=== PATIENT | female | born 1965 | race Caucasian/White ===

== ENCOUNTER 2024-09-24 07:53 | Outpatient (AMB) | payer OTHER, SELFPAY ==
--- OUTSIDE RECORDS SUMMARY | 2024-09-24 07:55 | XMS_ITS | Encounter Summary ---
Author Organization [employer] Address [address] [facility] 7 [place] [address] Care Team Providers Care Grand Jury Deputy Sheriff Name Role Phone Vandana CarneyP Primary Care Provider Un available Loida Daugherty Primary Care Provider [phone] Juanita Eldridge DO Primary Care Provider [phone] Encounter Details Date Type Department Care Team (Latest Contact Info) Description 11/25/2021 [facility] Dental, Provider, DDS Social History Tobacco Use Types Packs/Day Years Used Date Smoking Tobacco: Never Assessed Comments Unknown Sex and Gender Information Value Date Recorded Sex Assigned at Female 12/01/2022 9:53 AM EDT Legal Sex Female 5:34 PM EDT Gender Identity Female 12/01/2022 9:53 AM EDT Sexual Orientation Choose not to disclose 2022 9:53 AM EDT documented as of this encounter Plan of Treatment Not on file documented as of this encounter Visit Diagnoses Not on filedocumented in this encounter Care Teams Grand Jury Deputy Sheriff Relationship Specialty Start Date End Date Vandana Carney FNP PCP - General Family Medicine 12/09/22 04/04/23 Loida Daugherty FNP [address] [facility] [place] [address] PCP - General Family Medicine 04/05/23 08/02/23 Juanita Eldridge DO [address] [place] [address] PCP - General Family Medicine 08/03/23 documented as of this encounter
--- OUTSIDE RECORDS SUMMARY | 2024-09-24 07:55 | XMS_ITS | Encounter Summary ---
Author Organization [employer] Address [address] [facility] 7 [place] [address] Care Team Providers Care Java Security Architect Name Role Phone Vandana CarneyP Primary Care Provider Un available Loida Daugherty Primary Care Provider [phone] Juanita Eldridge DO Primary Care Provider [phone] Encounter Details Date Type Department Care Team (Latest Contact Info) Description 01/07/2021 Abstract [facility] CON[facility] Dental, Provider, DDS Social [...] on filedocumented in this encounter Care Teams Java Security Architect Relationship Specialty Start Date End Date Vandana Carney FNP PCP - General Family Medicine 12/09/22 04/04/23 Loida Daugherty FNP [address] [place] [address] PCP - General Family Medicine 04/05/23 08/02/23 Juanita Eldridge DO [address] [place] [address] PCP - General Family Medicine 08/03/23 documented as of this encounter
--- OUTSIDE RECORDS SUMMARY | 2024-09-24 07:55 | XMS_ITS | Clinical Summary ---
Author Organization [employer] [facility] Address [address] [place] [address] Care Team Providers Care Bush And Vine Fruit Crop Farmer Name Role Phone Unavailable Primary Care Provider Unavailabl e Surgical History Surgery Date Site/Laterality Comments COLONOSCOPY 2014 PROCEDURE: HISTORICAL COLONOSCOPY; COMMENT: f/u 5 yrs BREAST BIOPSY 10/2015 Left PROCEDURE: BX BREAST; PERC NEEDLE CORE W/IMAG GUID; COMMENT: benign Medical History Medical History Date Comments Historical Medical DX 2011 DX:Abnorma l Pap smear; COMMENT: ALYSSA 1, HPV neg Seasonal allergies DX:Seasonal a llergies Family History Medical History Relation Name Comments Other: Hodgkin's Lymphoma Father di ed at 62 after fall from roof No Known Problems Maternal Grandfather No Known Problems Maternal Grandmother Stroke Mother at 49 from flu, stroke, heart disease (had rheumatic heart disease as child) Breast cancer Other p. cousin No Known Problems Paternal Grandfather No Known Problems Paternal Grandmother No Known Problems Sister Colon cancer Neg Hx Ovarian cancer Neg Hx Uterine cancer Neg Hx Relation Name Status Comments Father Maternal Grandfather Maternal Grandmother Mother Other p. cousin Alive Paternal Grandfather Paternal Grandmother Sister Son 1 Jagdish Alive Son 2 Rodrick Alive Social History Tobacco Use Types Packs/Day Years Used Date Smoking Tobacco: Former Cigarettes Q uit: 08/21/1990 Smokeless Tobacco: Never Alcohol Use Standard Drinks/Week Comments Yes 0 (1 standard drink = 0.6 oz pur e alcohol) Sex and Gender Information Value Date Recorded Sex Assigned at Not on file Gender Identity Not on file Sexual Orientation Not on file Obstetrics History Last Filed Vital Signs Vital Sign Reading Time Taken Comments Blood Pressure 117/89 08/24/2023 11:00 AM EST Pulse 86 11/26/2021 10:44 AM EDT Temperature - - Respiratory Rate - - Oxygen Saturation - - Inhaled Oxygen Concentration - - Weight 91.4 kg (201 lb 9.6 oz) 08/24/2023 11:00 AM EST Height 170.2 cm (5' 7 ) 08/24/2023 11:00 AM EST Body Mass Index 31.57 08/24/2023 11:00 AM EST Plan of Treatment Upcoming Encounters Date Type Department Care Team (Late st Contact Info) Description 01/20/2025 7:30 AM EDT Appointment Radiology Department [address] [address] Health Maintenance Due Date Last Done Comments DTaP,Tdap,and Td Vaccines (1 - Tdap) 1983 Cervical Cancer Screening: HPV 1985 Zoster Vaccines (1 of 2) 2014 Colorectal Cancer Screening: Colonoscopy 07/30/2022 Depression Screening 07/30/2022 HIV Screening 07/30/2022 Hepatitis C Screening 07/30/2022 Social Influencers of Health Screening 07/30/2022 COVID-19 Vaccine ( - season) 2024 Influenza Vaccine (#1) 2024 Breast Cancer Screening 01/03/2026 01/04/20 24, 01/04/2024, 11/24/2022, Additional history exists RSV Immunization Patients 60+ Years Old (1 - 1-dose 75+ series) 2039 HIB Vaccines Aged Out No longer eligi ble based on patient's age to complete this topic HPV Vaccines Aged Out No longer eligi ble based on patient's age to complete this topic Hepatitis A Vaccines Aged Out No long er eligible based on patient's age to complete this topic Hepatitis B Vaccines Aged Out No long er eligible based on patient's age to complete this topic IPV Vaccines Aged Out No longer eligi ble based on patient's age to complete this topic MMR Vaccines Aged Out No longer eligi ble based on patient's age to complete this topic Meningococcal ACWY Vaccine Aged Out N o longer eligible based on patient's age to complete this topic Pneumococcal Vaccine: Pediatrics (0 to 5 Years) and At-Risk Patients (6 to 64 Years) Aged Out No longer eligible based on patient's age to complete this topic RSV Immunization Patients Under 20 months Aged Out No longer eligible based on patient's age to complete this topic Varicella Vaccines Aged Out No longer eligible based on patient's age to complete this topic Procedures Procedure Name Priority Date/Time Associated Diagnosis Comments SCREENING MAMMOGRAPHY BI 2-VIEW BREAST INC CAD Routine 01/04/2024 7:47 AM EDT Encounter for screening mammogram for malignant neoplasm of breast from Last 3 Months or Most Recently Relevant to Health Maintenance Results * SCREENING MAMMOGRAPHY BI 2-VIEW BREAST INC CAD (01/04/2024 7:47 AM EDT) Anatomical Region Laterality Modality Radiographic Ana ging 11/24/2022 5:23 PM EDT Narrative 01/04/2024 6:41 PM EDT This is a summary report. The complete report is available in the patient's medical record. If you cannot access the medical record, please contact the sending organization for a detailed fax or copy. Exam: Screening mammogram Findings: Digital bilateral full-field screening mammography is performed with tomosynthesis and interpreted with the aid of computer-aided detection. ??Comparison is made with 11/24/2022 and as far back as 10/08/2020. Breast parenchyma is composed of scattered fibroglandular densities. ??No new suspicious mass, architectural distortion, or suspicious calcifications. Impression: No mammographic evidence of malignancy. BI-RADS 1 - negative Procedure Note Vee Moses MD - 04/08/2024 This is a summary report. The complete report is available in thepatient's medical record. If you cannot access the medical record, pleasecontact the sending organization for a detailed fax or copy. Exam: Screening mammogram Findings: Digital bilateral full-field screening mammography is performedwith tomosynthesis and interpreted with the aid of computer-aideddetection. Comparison is made with 11/24/2022 and as far back as10/08/2020. Breast parenchyma is composed of scattered fibroglandular densities. Nonew suspicious mass, architectural distortion, or suspiciouscalcifications. Impression: No mammographic evidence of malignancy. BI-RADS 1 - negative Romain Philip CNM IMG XR PROCEDURES from Last 3 Months or Most Recently Relevant to Health Maintenance
--- OUTSIDE RECORDS SUMMARY | 2024-09-24 07:55 | XMS_ITS | Encounter Summary ---
Author Organization [employer] Address [address] [facility] 7 [place] [address] Care Team Providers Care Feller Operator Name Role Phone Vandana CarneyP Primary Care Provider Un available Loida Daugherty Primary Care Provider [phone] Juanita Eldridge DO Primary Care Provider [phone] Encounter Details Date Type Department Care Team (Latest Contact Info) Description 08/01/2019 Abstract [facility] CONVERSION[facility] Dental, Provider, DDS Social [...] on filedocumented in this encounter Care Teams Feller Operator Relationship Specialty Start Date End Date Vandana Carney FNP PCP - General Family Medicine 12/09/22 04/04/23 Loida Daugherty FNP [address] [place] [address] PCP - General Family Medicine 04/05/23 08/02/23 Juanita Eldridge DO [address] [place] [address] PCP - General Family Medicine 08/03/23 documented as of this encounter
--- OUTSIDE RECORDS SUMMARY | 2024-09-24 07:55 | XMS_ITS | Encounter Summary ---
Author Organization [employer] Address [address] [facility] 7 [place] [address] Care Team Providers Care Induction Machine Operator Name Role Phone Vandana CarneyP Primary Care Provider Un available Loida Daugherty Primary Care Provider [phone] Juanita Eldridge DO Primary Care Provider [phone] Encounter Details Date Type Department Care Team (Latest Contact Info) Description 01/17/2019 Abstract [facility] CONVERSION[facility] Dental, Provider, DDS Social [...] on filedocumented in this encounter Care Teams Induction Machine Operator Relationship Specialty Start Date End Date Vandana Carney FNP PCP - General Family Medicine 12/09/22 04/04/23 Loida Daugherty FNP [address] [place] [address] PCP - General Family Medicine 04/05/23 08/02/23 Juanita Eldridge DO [address] [place] [address] PCP - General Family Medicine 08/03/23 documented as of this encounter
--- OUTSIDE RECORDS SUMMARY | 2024-09-24 07:55 | XMS_ITS | Encounter Summary ---
Author Organization [employer] Address [address] [facility] 7t [place] [address] Care Team Providers Care Senior Category Manager Name Role Phone Vandana Carney Primary Care Provider Un available Loida Daugherty Primary Care Provider [phone] Juanita Eldridge DO Primary Care Provider [phone] Encounter Details Date Type Department Care Team (Late st Contact Info) Description 11/29/2022 Orders Only [facility] MEDICAL [address] [place] [address] Provider, Historical, Social History Tobacco Use Types Packs/Day Years [...] on file documented as of this encounter Procedures Procedure Name Priority Date/Time Associated Diagnosis Comments MAMMOGRAPHY Routine 11/24/2022 documented in this encounter Results * Hm Mammography (11/24/2022) Anatomical Region Laterality Modality Other us Historical Provider HEALTH MAINTENANCE Final Result documented in this encounter Visit Diagnoses Not on filedocumented in this encounter Care Teams Senior Category Manager Relationship Specialty Start Date End Date Vandana Carney FNP PCP - General Family Medicine 12/09/22 04/04/23 Loida Daugherty FNP [address] [facility] [place] [address] PCP - General Family Medicine 04/05/23 08/02/23 Juanita Eldridge DO [address] [facility] [place] [address] PCP - General Family Medicine 08/03/23 documented as of this encounter
--- OUTSIDE RECORDS SUMMARY | 2024-09-24 07:55 | XMS_ITS | Encounter Summary ---
Author Organization [employer] Address [address] [facility] [address] [place] [address] Care Team Providers Care Ocular Care Technologist Name Role Phone Vandana CarneyP Primary Care Provider Un available Loida Daugherty Primary Care Provider [phone] Juanita Eldridge DO Primary Care Provider [phone] Encounter Details Date Type Department Care Team (Latest Contact Info) Description 07/09/2020 Abstract [facility] CONVERSION[facility] Dental, Provider, DDS Social [...] on filedocumented in this encounter Care Teams Ocular Care Technologist Relationship Specialty Start Date End Date Vandana Carney FNP PCP - General Family Medicine 12/09/22 04/04/23 Loida Daugherty FNP [address] [place] [address] PCP - General Family Medicine 04/05/23 08/02/23 Juanita Eldridge DO [address] [place] [address] PCP - General Family Medicine 08/03/23 documented as of this encounter
--- OUTSIDE RECORDS SUMMARY | 2024-09-24 07:55 | XMS_ITS | Encounter Summary ---
Author Organization [employer] Address [address] [facility] [address] [place] [address] Care Team Providers Care Home Appliance Washing Machine Mechanic Name Role Phone Juanita Eldridge DO Primary Care Provider [phone] Encounter Details Date Type Department Care Team (Late st Contact Info) Description 06/07/2024 Orders Only [place] [facility] MEDICAL [address] [place] [address] Juanita Eldridge DO [address] [place], [place] [id number] Colon cancer screening Social History Tobacco Use Types Packs/Day Years Used Date Smoking Tobacco: Former Cigarettes Passive Smoke Exposure: Past Smokeless Tobacco: Never Alcohol Use Standard Drinks/Week Comments Not Currently 0 (1 standard drink = 0.6 oz pur e alcohol) Alcohol Answer Date Recorded How often do you have a drink containing alcohol ? 0 08/03/2023 How many drinks containing a lcohol do you have on a typical day when you are drinking? 0 08/03/2023 How often do you have six or more drinks on one occasion? 0 08/03/2023 Housing Stability Answer Date Recorded What is your housing situation today? I have janeen armenta 08/03/[address] you li ve. Do you have problems with any of the following? None of the above 08/03/2023 Food Insecurity Answer Date Recorded Within the past 12 months, y ou worried that your food would run out before you got money to buy more: Never True 08/03/2023 Within the past 12 months,th e food you bought just didn't last and you didn't have enough money to get more: Never True Transportation Answer Date Recorded In the past 12 months, has l ack of transportation kept you from medical appts, meetings, work or from getting things needed for daily living? No 08/03/2023 Intimate Partner Violence Answer Date R ecorded Within the last year, have y ou been afraid of your partner or ex-partner? 2 08/03/2023 Within the last year, have y ou been humiliated or emotionally abused in other ways by your partner or ex-partner? 2 Within the last year, have y ou been kicked, hit, slapped, or otherwise physically hurt by your partner or ex-partner? 2 08/03/2023 Within the last year, have y ou been raped or forced to have any kind of sexual activity by your partner or ex-partner? 2 08/03/2023 Utilities Answer Date Recorded In the past 12 months, has t he electric, gas, oil or water company threatened to shut off services in your home? No 08/03/2023 Depression Answer Date Recorded Patient Health Questionnaire-2 Score 0 08/03/2023 Comments Unknown Sex and Gender Information Value [...] Procedure Name Priority Date/Time Associated Diagnosis Comments AMB REFERRAL TO GASTROENTEROLOGY Routine 05/30/2024 Colon cancer screening documented in this encounter Results * Referral to Gastroenterology (05/30/2024) Juanita Eldridge DO OUTPATIENT REFERRAL ORDERABLES Final Result documented in this encounter Visit Diagnoses Diagnosis Colon cancer screening Special screening for malignant neoplasms, colon documented in this encounter Care Teams Home Appliance Washing Machine Mechanic Relationship Specialty Start Date End Date Juanita Eldridge DO [address] [place] [address] PCP - General Family Medicine 08/03/23 documented as of this encounter
--- OUTSIDE RECORDS SUMMARY | 2024-09-24 07:55 | XMS_ITS | Clinical Summary ---
Author Organization [employer] Address [address] [facility] 7t [place] [address] Care Team Providers Care Glue Specialty Supervisor Name Role Phone Juanita Eldridge Primary Care Provider [phone] Allergies No known active allergies Medications ibuprofen (Advil) 200 MG tablet 2 tablets. Active Multiple Vitamin (MULTIVITAMINS PO) daily. Active Active Problems Problem Noted Date Diagnosed Date Primary osteoarthritis of left knee 05/09/2024 Overview (05/09/2024): Images from the original note were not included. Hypercholesterolemia 08/03/2023 Assessment & Plan (08/03/2023 9:43 AM EST): Elevated total and LDL cholesterol on last check. Repeat today Prediabetes 08/02/2023 08/02/2023 Overview (08/03/2023): 08/03/23 A1C 5.7% Assessment & Plan (08/03/2023 9:44 AM EST): A1C 5.7% today Improved, monitor yearly Obesity (BMI 30.0-34.9) 08/02/2023 08/02/20 Menopausal symptoms 08/02/2023 08/02/2023 History of COVID-19 08/02/2023 08/02/2023 Resolved Problems Problem Noted Date Diagnosed Date Resolved Date Abnormal mammogram 08/02/2023 08/02/2023 Overview (08/03/2023): A few years ago. Subsequently normal Immunizations Name Administration Dates Next Due Hep B, adult 06/30/2004,01/26/2004,12/26/2003 Influenza, Split (incl. cherie fied surface antigen) 06/03/2007 TD (adult), 2 Lf tetanus tox oid, preservative free, adsorbed 06/24/2009,12/27/1999 Tdap 02/23/2018 Varicella 10/04/1969 Zoster, Recombinant 01/21/2021 Family History Medical History Relation Name Comments Hodgkin's lymphoma Father T2DM Father HLD Maternal Grandmother HTN Maternal Grandmother CVA Mother Rheumatic fever Mother pleural effusion Mother Ulcerative colitis Sister Relation Name Status Comments Father Maternal Grandmother Mother Sister Social History Tobacco Use Types Packs/Day Years Used Date Smoking Tobacco: Former Cigarettes Passive Smoke Exposure: Past Smokeless Tobacco: Never Tobacco Cessation:Counseling Given: Not Answered Alcohol Use Standard Drinks/Week Comments Not Currently [...] is your housing situation today? I have janeenruslan armenta 08/03/[address] you [...] the past 12 months, has t he [employer], [employer], [employer] or water [employer] threatened to shut off services in your home? No 08/03/2023 Depression Answer Date Recorded Patient Health Questionnaire-2 Score 0 08/03/2023 Comments Unknown Sex and Gender Information Value Date Recorded Sex Assigned at Female 12/01/2022 9:53 AM EDT Legal Sex Female 5:34 PM EDT Gender Identity Female 12/01/2022 9:53 AM EDT Sexual Orientation Choose not to disclose 2022 9:53 AM EDT Last Filed Vital Signs Vital Sign Reading Time Taken Comments Blood Pressure 136/100 08/03/2023 9:04 AM EST Pulse 92 08/03/2023 8:17 AM EST Temperature 36.5 ??C (97.7 ??F) 08/03/2023 8:17 AM ES T Respiratory Rate - - Oxygen Saturation 97% 08/03/2023 8:17 AM EST Inhaled Oxygen Concentration - - Weight 92.1 kg (203 lb) 08/03/2023 8:17 AM EST Height 170.2 cm (5' 7 ) 08/03/2023 8:17 AM EST Body Mass Index 31.79 08/03/2023 8:17 AM EST Plan of Treatment Health Maintenance Due Date Last Done Comments CT Colonography 1964 Colonoscopy 1964 Colorectal Cancer Screening 1964 FIT DNA/Cologuard 1964 FIT 1964 FOBT 1964 Sigmoidoscopy 1964 Alcohol/Substance Use Screening 1976 Hepatitis C Screening 1982 Pneumococcal Vaccine: 50+ Years (1 of 1 - PCV) 2014 Cervical Cancer Screening 12/01/2017 HPV/Cotest 12/01/2017 12/01/2012 Pap Smear 12/01/2017 12/01/2012 Dental X-Ray: Full Mouth 10/09/2018 10/08/2015, 10/2001 Zoster Vaccines (2 of 2) 03/18/2021 01/21/2021 Dental X-Ray: Bitewings 06/03/2023 06/02/20 22, 01/07/2021, 08/01/2019, Additional history exists Dental Oral Exam 06/10/2023 12/08/2022, , 11/25/2021, Additional history exists Dental Prophylaxis 06/10/2023 12/08/2022, 1 , 11/25/2021, Additional history exists COVID-19 Vaccine ( season) 2024 08/09/2021, 12/25/2020, 11/27/2020 Influenza Vaccine (#1) 2024 06/03/2007 Depression Screening 08/03/2024 08/03/2023, 08/03/20 23 Diabetes: Hemoglobin A1C 08/03/2024 023, 01/21/2022, 10/22/2020 SDOH Screening 08/03/2024 08/03/2023 Tobacco Screening 08/03/2024 08/03/2023 Mammogram 11/24/2024 11/24/2022, 08/2017, 10/19/2017 DTaP/Tdap/Td Vaccines (2 - Td or Tdap) 02/24/2028 02/23/2018, 06/24/2009, 12/27/1999 RSV Patients and Patients Aged 60 years or older (1 - 1-dose 75+ series) 2039 Hepatitis B Vaccines Completed 06/30/2004, 01/26/2004, 12/26/2003 HIV Screening Completed 11/26/2012 HIB Vaccines Aged Out No longer eligi [...] patient's age to complete this topic Meningococcal Vaccine Aged Out No beatriz kiersten eligible based on patient's age to complete this topic RSV under 20 months Aged Out No longe r eligible based on patient's age to complete this topic Rotavirus Vaccines Aged Out No longer eligible based on patient's age to complete this topic Procedures Procedure Name Priority Date/Time Associated Diagnosis Comments POCT GLYCOSYLATED HEMOGLOBIN (HGB A1C) Routine 08/03/2023 8:44 AM EST Prediabetes PROPHYLAXIS - ADULT Routine 12/08/2022 8 :30 AM EDT PERIODIC ORAL EVALUATION - ESTABLISHED PATIENT Routine 12/08/2022 8:30 AM EDT HM MAMMOGRAPHY Routine 11/24/2022 BITEWINGS - 4 RADIOGRAPHIC IMAGES Routine 06/02/2022 12:00 AM EDT DIAGNOSTIC - DIAGNOSTIC IMAGING - INTRAORAL - COMPREHENSIVE SERIES OF RADIOGRAPHIC IMAGES Routine 10/08/2015 12:00 AM EST THIN PREP PAP, WITH HPV Routine 12/01/2012 12:00 AM EDT HIV-1 ANTIBODY, EIA Routine 11/26/2012 from Last 3 Months or Most Recently Relevant to Health Maintenance Results * (ABNORMAL) POCT glycosylated hemoglobin (Hgb A1c) (08/03/2023 8:44 AM EST) Hemoglobin A1C 5.7 4.0 - 6.0 % Blood Capillary blood specimen / Unknown 08/03/2023 8:44 AM EST Juanita Eldridge DO POINT OF CARE TEST ENTER/EDIT ORDERABLES Final Result * Hm Mammography (11/24/2022) Anatomical Region Laterality Modality Other Historical Provider HEALTH MAINTENANCE Final Result * THIN PREP PAP, WITH HPV (12/01/2012 12:00 AM EDT) Historical Provider LAB CYTOLOGY ORDERABLES F inal Result [facility] [address] [place] [address] * HIV-1 antibody, EIA (11/26/2012) External HIV-1 Antibody None Detected Blood Venous blood specimen / Unknown us Historical Provider LAB BLOOD ORDERABLES Samantha l Result from Last 3 Months or Most Recently Relevant to Health Maintenance Insurance [facility] [address] Care Teams Glue Specialty Supervisor Relationship Specialty Start Date End Date Juanita Eldridge DO [address] [place] [id number] PCP - General Family Medicine 08/03/23
[2024-09-24 08:06] VITALS: BP 122/74; PULSE 82; TEMP 36.6; O2SAT 98; BMI 31.9
--- NOTE | 2024-09-24 08:06 | A.OFFVIS_ITS ---
Vital Signs 09/24/24 08:06 Height 5 ft 7 in Weight 204 lb BMI 31.9 BP 122/74 Blood Pressure Location Lt brachial Position Sitting Pulse 82 Pulse Source Pulse Oximeter Temp 98 F Pulse Oximetry (%) 98 Oxygen Delivery Method Room Air Intake Visit Reasons: Arthritis Intake Note: Patient presents today for follow up on osteoarthritis. She was last seen in the office at [facility] on 02/15/24. Allergies No Known Allergies Allergy (Verified 09/24/24 08:09) HPI HPI Arthritis: Details: Euflexxa injections last 5 months. She has changed job, which has helped since she is not on her feet 9 hours a day. She had exacerbation of knee pain when she was in [facility] recently requiring Acetaminophen regularly. Uses knee braces when walking. 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 of left midfoot Anserine bursitis H/O mammogram Infrapatellar bursitis Bursitis Arthralgia of knee Surgical History (Updated 09/20/24 @ 16:21 by Jasmin Wilcox CMA) H/O colonoscopy Social History (Updated 09/20/24 @ 16:17 by Jasmin Wilcox CMA) Household Members: Significant Other Patient Tobacco Use Status: Former Tobacco user Review of Systems Const All systems reviewed & are unremarkable except as noted in HPI and below Physical Exam Vital Signs: Last Vital Signs Temp 98 F 09/24/24 08:06 Pulse 82 09/24/24 08:06 BP 122/74 09/24/24 08:06 Pulse Ox 98 09/24/24 08:06 Oxygen Delivery Method Room Air 09/24/24 08:06 BMI result Body Mass Index 31.9 Const Other: General: Comfortable Skin: No lesions seen MSK: Tender to palpate joint line of bilateral knees. Right knee crepitus palpated. No new effusion palpated. Right knee flexion 100 degrees. Left knee flexion 110 degrees. Assessment & Plan Assessment & Plan (1) Osteoarthritis of knees, bilateral: Comment: Left knee pain is uncontrolled. Right knee pain has started but it is tolerable. She received benefit with Euflexxa injections. Failed cortisone injection in the past. Code(s): M17.0 - Bilateral primary osteoarthritis of knee Category: Medical Plan: Euflexxa PA left knee Return to clinic in 1 month or sooner if Euflexxa is approved Bilateral Hinged knee brace prescription prescribed Medications: New leg brace (Knee Support Brace) As directed. Bilateral Hinged braces Dx: osteoarthritis knee 2 ea 0RF Coding Level of Care Code Est Pt Level 3 (60831) Complex EM visit Add On G2211 Diagnoses Osteoarthritis of knees, bilateral M17.0
== END 2024-09-24 08:33 | disposition home or self-care (01) ==
PROVIDERS: PCP Nurse Practitioner Adult Health; Visit Provider Internal Medicine Rheumatology
DX: M17.0 Bilateral primary osteoarthritis of knee (principal)
CPT/HCPCS: 99213

== ENCOUNTER → 2024-09-24 07:53 | Outpatient (BNVA) | payer OTHER, SELFPAY | PROVIDERS: PCP Nurse Practitioner Adult Health; Visit Provider Internal Medicine Rheumatology ==

== ENCOUNTER 2024-11-14 14:21 | Outpatient (AMB) | payer OTHER, SELFPAY ==
--- NOTE | 2024-11-14 14:27 | MHC.OFFVIS ---
Vital Signs 11/14/24 14:30 Height 5 ft 7 in Weight 203 lb 4.259 oz BMI 31.8 BP 130/80 Blood Pressure Location Rt brachial Position Sitting Pulse 97 Pulse Source Pulse Oximeter Pulse Oximetry (%) 99 Oxygen Delivery Method Room Air Intake Visit Reasons: euflexxa #1 Intake Note: Pt presents today for euflexxa injection number 1. Allergies No Known Allergies Allergy (Verified 09/24/24 08:09) HPI HPI euflexxa #1: Details: She has been experiencing pain in her calves. 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 Massage helps. 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 of left midfoot Anserine bursitis H/O mammogram Infrapatellar bursitis Bursitis Arthralgia of knee Surgical History H/O colonoscopy Social History Household Members: Significant Other Patient Tobacco Use Status: Former Tobacco user Review of Systems Const All systems reviewed & are unremarkable except as noted in HPI and below Physical Exam Vital Signs: Last Vital Signs Pulse 97 11/14/24 14:30 BP 130/80 11/14/24 14:30 Pulse Ox 99 11/14/24 14:30 Oxygen Delivery Method Room Air 11/14/24 14:30 BMI result Body Mass Index 31.8 Const Other: General: Comfortable Skin: No lesions seen MSK: Tender to palpate joint line of bilateral knees. Right knee crepitus palpated. Tender calves on palpation. No increase with of calves or discoloration present. No new effusion palpated. Right knee flexion 100 degrees. Left knee flexion 110 degrees. Office Procedures AMB Joint Injection/Aspiration Joint Injection/Aspiration Details: Left knee joint Prep: site was prepped using aseptic technique Injected: Euflexxa was injected with 25 gauge 1-1/2 inch needle Procedure: The patient tolerated the procedure well. Postprocedure protocol was discussed with patient. Coding 04559 - Large joint Procedure code (CPT) selection complete Office Meds Euflexxa 10 mg/mL (mw 2.4-3.6 million) intra-articular syringe Performing Provider: Imer Fonseca MD Performing Location: [facility] [place] Rheumatology-[facility] Administered by: Imer Fonseca MD on 11/14/24 16:25 Dose Route Admin Location Dispensed Lot Number Expiration Date [facility] Manager [employer] 20 mg intra-articular 2 mL [id number] Assessment & Plan Assessment & Plan (1) Osteoarthritis of knees, bilateral: Comment: Left knee pain is uncontrolled. Euflexxa 1. Today Rheumatology history: She received benefit with Euflexxa injections 2023. Euflexxa 10/2024. Failed cortisone injection in the past. 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 We discussed conservative management Code(s): M79.661 - Pain in right lower leg; M79.662 - Pain in left lower leg Category: Medical Plan: Continue massage as needed Apply heat to calves I recommend that she change her workstation so it is closer to the printer. She will also change her chair to be able to wheel herself to the printer when needed. Orders: Orders AMB Joint Injection/Aspiration Today M17.0 - Bilateral primary osteoarthritis of knee Coding Level of Care Code Est Pt Level 4 (14303) Complex EM visit Add On G2211 Diagnoses Primary osteoarthritis of both knees M17.0 Osteoarthritis type: primary Bilateral calf pain M79.661; M79.662 CPT Codes Coding - 49156 Large joint: 64671 - Large joint ([id number])
[2024-11-14 14:30] VITALS: BP 130/80; PULSE 97; O2SAT 99; BMI 31.8
== END 2024-11-14 15:12 | disposition home or self-care (01) ==
LOC: HO.RHES 14:22
PROVIDERS: PCP Nurse Practitioner Adult Health; Visit Provider Internal Medicine Rheumatology
DX: M17.0 Bilateral primary osteoarthritis of knee (principal); M79.661 Pain in right lower leg; M79.662 Pain in left lower leg
CPT/HCPCS: 20610

== ENCOUNTER → 2024-11-14 14:21 | Outpatient (BNVA) | payer OTHER, SELFPAY | PROVIDERS: PCP Nurse Practitioner Adult Health; Visit Provider Internal Medicine Rheumatology | DX: M17.0 Bilateral primary osteoarthritis of knee (principal); M79.661 Pain in right lower leg; M79.662 Pain in left lower leg | CPT/HCPCS: 20610; J7323 ==

== ENCOUNTER 2024-11-21 13:40 | Outpatient (AMB) | payer OTHER, SELFPAY ==
--- NOTE | 2024-11-21 13:43 | A.OFFVIS_ITS ---
Vital Signs 11/21/24 13:44 Height 5 ft 7 in BP 100/70 Blood Pressure Location Lt brachial Position Sitting Pulse 93 Pulse Source Pulse Oximeter Pulse Oximetry (%) 98 Oxygen Delivery Method Room Air Intake Visit Reasons: euflexxa #2 Intake Note: Euflexxa injection 2 Allergies No Known Allergies Allergy (Verified 11/21/24 13:43) HPI HPI euflexxa #2: Details: Improve pain from last injection. 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 Right knee crepitus palpated. No new effusion palpated. Left knee flexion 110 degrees. Office Procedures AMB Joint Injection/Aspiration Joint Injection/Aspiration Details: Left knee joint Prep: site was prepped using aseptic technique Injected: 40 mg of, Kenalog, with 1 mL of and 1% plain lidocaine Procedure: The patient tolerated the procedure well. Postprocedure protocol was discussed with patient. Coding 90646 - Large joint Procedure code (CPT) selection complete Office Meds Euflexxa 10 mg/mL (mw 2.4-3.6 million) intra-articular syringe Performing Provider: Imer Fonseca MD Performing Location: [facility] [place] Rheumatology-[facility] Administered by: Imer Fonseca MD on 11/21/24 15:01 Dose Route Admin Location Dispensed Lot Number Expiration Date [facility] Branch Associate Teller 20 mg intra-articular 2 mL [id number] Assessment & Plan Assessment & Plan (1) Osteoarthritis of knees, bilateral: Comment: Left knee pain is uncontrolled. Euflexxa 2. Today Rheumatology history: She received benefit with Euflexxa injections 2023. Euflexxa 10/2024. Failed cortisone injection in the past. Code(s): M17.0 - Bilateral primary osteoarthritis of knee Category: Medical Qualifiers: Osteoarthritis type: primary Qualified Code(s): M17.0 - Bilateral primary osteoarthritis of knee Plan: Patient received injection Euflexxa to left knee Return to clinic in 1 week Orders: Orders AMB Joint Injection/Aspiration Today M17.0 - Bilateral primary osteoarthritis of knee Medications: New Euflexxa (sodium hyaluronate (viscosup)) 20 mg (2 mL) intra-articular ONCE 2 mL 0RF NS M17.0 - Bilateral primary osteoarthritis of knee Coding Level of Care Code Est Pt Level 3 (19706) Complex EM visit Add On G2211 Diagnoses Primary osteoarthritis of both knees M17.0 Osteoarthritis type: primary CPT Codes Coding - 41939 Large joint: 89591 - Large joint ([id number])
[2024-11-21 13:44] VITALS: BP 100/70; PULSE 93; O2SAT 98
--- OUTSIDE RECORDS SUMMARY | 2024-11-21 15:01 | XMS_ITS | Clinical Summary ---
Author Organization [facility] Address [address] [place] [address] Care Team Providers Care Piece Cutter Name Role Phone Unavailable Primary Care Provider [...] drink = 0.6 oz pur e alcohol) Comments Unknown Sex and Gender Information Value Date Recorded Sex Assigned at Not on file Legal Sex Female 2:21 AM EST Gender Identity Not on file Sexual Orientation [...] 01/20/2025 7:30 AM EDT Appointment Radiology Department [address] [id number] Health Maintenance Due Date Last Done Comments DTaP,Tdap,and Td Vaccines (1 - Tdap) 1983 Cervical Cancer Screening: HPV 1985 Pneumococcal Vaccine: 50+ Years (1 of 1 - PCV) 2014 Zoster Vaccines (1 of 2) 2014 Colorectal Cancer Screening: Colonoscopy 07/30/2022 Depression Screening 07/30/2022 HIV Screening 07/30/2022 Hepatitis C Screening 07/30/2022 Social Influencers of Health Screening 07/30/2022 COVID-19 Vaccine ( - season) 2024 Influenza Vaccine (#1) 2024 Breast Cancer Screening 01/03/2026 01/04/20 24, 01/04/2024, 11/24/2022, Additional history exists RSV Immunization Adult Patients (1 - 1-dose 75+ series) 2039 HIB [...] patient's age to complete this topic Meningococcal B Vacine Aged Out No lo nger eligible based on patient's age to complete [...] of malignancy. BI-RADS 1 - negative Romain LLANES IMG XR PROCEDURES Final Result from Last 3 Months or Most Recently Relevant to Health Maintenance
--- OUTSIDE RECORDS SUMMARY | 2024-11-21 15:01 | XMS_ITS | Clinical Summary ---
Author Organization [employer] Address [address] [facility] [address] [place] [address] Care Team Providers Care State'S Attorney Name Role Phone Juanita Eldridge Primary Care Provider [phone] Allergies No known active allergies Medications ibuprofen [...] the past 12 months, has t he [employer], [employer], [employer] or water Presentain threatened to shut off services in your [...] RADIOGRAPHIC IMAGES Routine 06/02/2022 12:00 AM EDT INTRAORAL - COMPLETE SERIES OF RADIOGRAPHIC IMAGES Routine 10/08/2015 12:00 [...] Provider LAB CYTOLOGY ORDERABLES F inal Result [facility] [address] [place] [address] * HIV-1 antibody, EIA (11/26/2012) External HIV-1 Antibody None Detected Blood Venous blood specimen / Unknown us Historical Provider LAB BLOOD ORDERABLES Samantha l Result from Last 3 Months or Most Recently Relevant to Health Maintenance Insurance [facility] [address] [place] [address] Care Teams State'S Attorney Relationship Specialty Start Date End Date Juanita Eldridge DO [address] [place] [address] PCP - General Family Medicine 08/03/23
--- OUTSIDE RECORDS SUMMARY | 2024-11-21 15:01 | XMS_ITS | Encounter Summary ---
Author Organization [employer] Address [address] [facility] 7 [place] [address] Care Team Providers Care Clay Dry Press Operator Name Role Phone Vandana CarneyP Primary Care Provider Un available Loida Daugherty Primary Care Provider [phone] Juanita Eldridge DO Primary Care Provider [phone] Encounter Details Date Type Department Care Team [...] on filedocumented in this encounter Care Teams Clay Dry Press Operator Relationship Specialty Start Date End Date Vandana Carney FNP PCP - General Family Medicine 12/09/22 04/04/23 Loida Daugherty FNP [address] [place] [address] PCP - General Family Medicine 04/05/23 08/02/23 Juanita Eldridge DO [address] [place] [address] PCP - General Family Medicine 08/03/23 documented as of this encounter
--- OUTSIDE RECORDS SUMMARY | 2024-11-21 15:01 | XMS_ITS | Encounter Summary ---
Author Organization [employer] Address [address] [facility] [address] [place] [address] Care Team Providers Care Shop Hand Name Role Phone Vandana CarneyP Primary Care Provider Un available Loida Daugherty Primary Care Provider [phone] Juanita Eldridge DO Primary Care Provider [phone] Encounter Details Date Type Department Care Team [...] on filedocumented in this encounter Care Teams Shop Hand Relationship Specialty Start Date End Date Vandana Carney FNP PCP - General Family Medicine 12/09/22 04/04/23 Loida Daugherty FNP [address] [place] [address] PCP - General Family Medicine 04/05/23 08/02/23 Juanita Eldridge DO [address] [place] [address] PCP - General Family Medicine 08/03/23 documented as of this encounter
--- OUTSIDE RECORDS SUMMARY | 2024-11-21 15:01 | XMS_ITS | Encounter Summary ---
Author Organization [employer] Address [address] [facility] [address] [place] [address] Care Team Providers Care Food Science Technician Name Role Phone Juanita Eldridge DO Primary Care Provider Encounter Details Date Type Department Care Team (Late st Contact Info) Description 06/07/2024 Orders Only [place] [facility] [address] [place] [address] Juanita Eldridge DO [address] [place], [place] [id number] Colon cancer screening Social History Tobacco Use [...] colon documented in this encounter Care Teams Food Science Technician Relationship Specialty Start Date End Date Juanita Eldridge DO [address] [place] [address] PCP - General Family Medicine 08/03/23 documented as of this encounter
--- OUTSIDE RECORDS SUMMARY | 2024-11-21 15:01 | XMS_ITS | Encounter Summary ---
Author Organization [employer] Address [address] [facility] [address]t [place] [address] Care Team Providers Care Transportation Dispatcher Name Role Phone Vandana CarneyP Primary Care Provider Un available Loida Daugherty Primary Care Provider [phone] Juanita Eldridge DO Primary Care Provider [phone] Encounter Details Date Type Department Care Team [...] on filedocumented in this encounter Care Teams Transportation Dispatcher Relationship Specialty Start Date End Date Vandana Carney FNP PCP - General Family Medicine 12/09/22 04/04/23 Loida Daugherty FNP [address] [facility] [place] [address] PCP - General Family Medicine 04/05/23 08/02/23 Juanita Eldridge DO [address] [place] [address] PCP - General Family Medicine 08/03/23 documented as of this encounter
--- OUTSIDE RECORDS SUMMARY | 2024-11-21 15:01 | XMS_ITS | Encounter Summary ---
Author Organization [employer] Address [address] [facility] 7[address] [place] [address] Care Team Providers Care Private Sector Executive Name Role Phone Vandana Carney Primary Care Provider Un available Loida Daugherty Primary Care Provider [phone] Juanita Eldridge DO Primary Care Provider [phone] Encounter Details Date Type Department Care Team (Late st Contact Info) Description 11/29/2022 Orders Only [facility] [address] [place] [address] Provider, Historical, Social History Tobacco Use Types [...] on filedocumented in this encounter Care Teams Private Sector Executive Relationship Specialty Start Date End Date Vandana Carney FNP PCP - General Family Medicine 12/09/22 04/04/23 Loida Daugherty FNP [address] [facility] [place] [address] PCP - General Family Medicine 04/05/23 08/02/23 Juanita Eldridge DO [address] [facility] [place] [address] PCP - General Family Medicine 08/03/23 documented as of this encounter
--- OUTSIDE RECORDS SUMMARY | 2024-11-21 15:01 | XMS_ITS | Encounter Summary ---
Author Organization [employer] Address [address] [facility] 7 [place] [address] Care Team Providers Care Geochemical Laboratory Technician Name Role Phone Vandana CarneyP Primary Care Provider Un available Loida Daugherty Primary Care Provider [phone] Juanita Eldridge DO Primary Care Provider [phone] Encounter Details Date Type Department Care Team [...] on filedocumented in this encounter Care Teams Geochemical Laboratory Technician Relationship Specialty Start Date End Date Vandana Carney FNP PCP - General Family Medicine 12/09/22 04/04/23 Loida Daugherty FNP [address] [place] [address] PCP - General Family Medicine 04/05/23 08/02/23 Juanita Eldridge DO [address] [place] [address] PCP - General Family Medicine 08/03/23 documented as of this encounter
--- OUTSIDE RECORDS SUMMARY | 2024-11-21 15:01 | XMS_ITS | Encounter Summary ---
Author Organization [employer] Address [address] [facility] [address] [place] [address] Care Team Providers Care Tea Tree Farm Worker Name Role Phone Vandana CarneyP Primary Care Provider Un available Loida Daugherty Primary Care Provider [phone] Juanita Eldridge DO Primary Care Provider [phone] Encounter Details Date Type Department Care Team [...] on filedocumented in this encounter Care Teams Tea Tree Farm Worker Relationship Specialty Start Date End Date Vandana Carney FNP PCP - General Family Medicine 12/09/22 04/04/23 Loida Daugherty FNP [address] [place] [address] PCP - General Family Medicine 04/05/23 08/02/23 Juanita Eldridge DO [address] [place] [address] PCP - General Family Medicine 08/03/23 documented as of this encounter
== END 2024-11-21 14:26 | disposition home or self-care (01) ==
LOC: HO.RHES 13:41
PROVIDERS: PCP Nurse Practitioner Adult Health; Visit Provider Internal Medicine Rheumatology
DX: M17.0 Bilateral primary osteoarthritis of knee (principal)
CPT/HCPCS: 20610; 99213

== ENCOUNTER → 2024-11-21 13:40 | Outpatient (BNVA) | payer OTHER, SELFPAY | PROVIDERS: PCP Nurse Practitioner Adult Health; Visit Provider Internal Medicine Rheumatology | DX: M17.0 Bilateral primary osteoarthritis of knee (principal) | CPT/HCPCS: 20610; J7323 ==

== ENCOUNTER 2024-11-28 09:23 | Outpatient (AMB) | payer OTHER, SELFPAY ==
--- NOTE | 2024-11-28 09:41 | A.OFFVIS_ITS ---
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 of left midfoot Anserine bursitis H/O mammogram Infrapatellar bursitis Bursitis Arthralgia of knee Surgical History H/O colonoscopy Social History Household Members: Significant Other Patient Tobacco Use Status: Former Tobacco user Review of Systems Const All systems reviewed & are unremarkable except as noted in HPI and below Physical Exam Vital Signs: Last Vital Signs Pulse 96 11/28/24 09:43 BP 110/80 11/28/24 09:43 Pulse Ox 99 11/28/24 09:43 Oxygen Delivery Method Room Air 11/28/24 09:43 BMI result Body Mass Index 31.8 Const Other: General: Comfortable Skin: No lesions seen MSK: Tender to palpate joint line of left knee. Right knee crepitus palpated. No new effusion palpated. Left knee flexion 110 degrees. Office Procedures AMB Joint Injection/Aspiration Joint Injection/Aspiration Details: Left knee Euflexxa s Prep: site was prepped using aseptic technique Injected: Euflexxa 20 mg was injected into left knee using 25 gauge 1-1/2 inch needle Procedure: The patient tolerated the procedure well. Postprocedure protocol was discussed with patient. Coding 35124 - Large joint Procedure code (CPT) selection complete Office Meds Euflexxa 10 mg/mL (mw 2.4-3.6 million) intra-articular syringe Performing Provider: Imer Fonseca MD Performing Location: [facility] [place] Rheumatology-[facility] Administered by: Imer Fonseca MD on 11/28/24 10:11 Dose Route Admin Location Dispensed Lot Number Expiration Date [employer] Work[employer] 20 mg intra-articular 2 mL [id number] Assessment & Plan Assessment & Plan (1) Osteoarthritis of knees, bilateral: Comment: Left knee pain is better controlled on Euflexxa. Euflexxa #3 Today Rheumatology history: She received benefit with Euflexxa injections 2023. Euflexxa 10/2024 she had a trip to [facility] for 3 weeks, which aggravated knee pain. Failed cortisone injection in the past. Code(s): M17.0 - Bilateral primary osteoarthritis of knee Category: Medical Qualifiers: Osteoarthritis type: primary Qualified Code(s): M17.0 - Bilateral primary osteoarthritis of knee Plan: Patient received left knee Euflexxa injection this visit Return to clinic in 6 months. PA not needed for future Euflexxa injection per her insurance. Orders: Orders AMB Joint Injection/Aspiration Today M17.0 - Bilateral primary osteoarthritis of knee Medications: New Euflexxa (sodium hyaluronate (viscosup)) 20 mg (2 mL) intra-articular ONCE 2 mL 0RF NS M17.0 - Bilateral primary osteoarthritis of knee Coding Level of Care Code Est Pt Level 3 (04263) Complex EM visit Add On G2211 Diagnoses Primary osteoarthritis of both knees M17.0 Osteoarthritis type: primary CPT Codes Coding - 65130 Large joint: 18641 - Large joint ([id number])
[2024-11-28 09:43] VITALS: BP 110/80; PULSE 96; O2SAT 99; BMI 31.8
--- OUTSIDE RECORDS SUMMARY | 2024-11-28 10:17 | XMS_ITS | Encounter Summary ---
Author Organization [employer] Address [address] [facility] [address] [place] [address] Care Team Providers Care Carpenter And Joiner Name Role Phone Vandana CarneyP Primary Care Provider Un available Loida Daugherty Primary Care Provider [phone] Juanita Eldridge DO Primary Care Provider [phone] Encounter Details Date Type Department Care Team [...] on filedocumented in this encounter Care Teams Carpenter And Joiner Relationship Specialty Start Date End Date Vandana Carney FNP PCP - General Family Medicine 12/09/22 04/04/23 Loida Daugherty FNP [address] [place] [address] PCP - General Family Medicine 04/05/23 08/02/23 Juanita Eldridge DO [address] [facility] [place] [address] PCP - General Family Medicine 08/03/23 documented as of this encounter
--- OUTSIDE RECORDS SUMMARY | 2024-11-28 10:17 | XMS_ITS | Clinical Summary ---
Author Organization [employer] Address [address] [facility] 7t [place] [address] Care Team Providers Care Gas Tender Name Role Phone Juanita Eldridge Primary Care Provider [phone] Allergies No known active allergies Medications ibuprofen [...] the past 12 months, has t he [employer], [employer] or water [employer] threatened to shut off services in your [...] Provider LAB CYTOLOGY ORDERABLES F inal Result [facility] [address] [place] [address] * HIV-1 antibody, EIA (11/26/2012) External HIV-1 Antibody None Detected Blood Venous blood specimen / Unknown us Historical Provider LAB BLOOD ORDERABLES Samantha l Result from Last 3 Months or Most Recently Relevant to Health Maintenance Insurance [facility] [address] [place] [address] Care Teams Gas Tender Relationship Specialty Start Date End Date Juanita Eldridge DO [address] [place] [id number] PCP - General Family Medicine 08/03/23
--- OUTSIDE RECORDS SUMMARY | 2024-11-28 10:17 | XMS_ITS | Encounter Summary ---
Author Organization [employer] Address [address] [facility] [address] [place] [address] Care Team Providers Care Laminating Machine Tender Name Role Phone Vandana CarneyP Primary Care Provider Un available Loida Daugherty Primary Care Provider [phone] Juanita Eldridge DO Primary Care Provider [phone] Encounter Details Date Type Department Care Team [...] on filedocumented in this encounter Care Teams Laminating Machine Tender Relationship Specialty Start Date End Date Vandana Carney FNP PCP - General Family Medicine 12/09/22 04/04/23 Loida Daugherty FNP [address] [place] [address] PCP - General Family Medicine 04/05/23 08/02/23 Juanita Eldridge DO [address] [place] [address] PCP - General Family Medicine 08/03/23 documented as of this encounter
--- OUTSIDE RECORDS SUMMARY | 2024-11-28 10:17 | XMS_ITS | Encounter Summary ---
Author Organization [employer] Address [address] [facility] [address]t [place] [address] Care Team Providers Care Bogger Operator Name Role Phone Vandana CarneyP Primary Care Provider Un available Loida Daugherty Primary Care Provider [phone] Juanita Eldridge DO Primary Care Provider Encounter [...] on filedocumented in this encounter Care Teams Bogger Operator Relationship Specialty Start Date End Date Vandana Carney FNP PCP - General Family Medicine 12/09/22 04/04/23 Loida Daugherty FNP [address] [place] [address] PCP - General Family Medicine 04/05/23 08/02/23 Juanita Eldridge DO [address] [place] [address] PCP - General Family Medicine 08/03/23 documented as of this encounter
--- OUTSIDE RECORDS SUMMARY | 2024-11-28 10:17 | XMS_ITS | Clinical Summary ---
Author Organization [facility] Address [address] [place] [address] Care Team Providers Care Geophysical Prospector Name Role Phone Unavailable Primary Care Provider [...] 01/20/2025 7:30 AM EDT Appointment Radiology Department [address] [id number] Health Maintenance Due Date Last Done Comments [...] Vaccine ( - season) 2024 Influenza Vaccine (Season Ended) 2025 Breast Cancer Screening 01/03/2026 01/04/20 24, 01/04/2024, [...] age to complete this topic Meningococcal B Vaccine Aged Out No l onger eligible based on patient's age to complete [...]
--- OUTSIDE RECORDS SUMMARY | 2024-11-28 10:17 | XMS_ITS | Encounter Summary ---
Author Organization [employer] Address [address] [facility] [address] [place] [address] Care Team Providers Care Propeller Driven Airplane Mechanic Name Role Phone Vandana CarneyP Primary Care Provider Un available Loida Daugherty Primary Care Provider [phone] Juanita Eldridge DO Primary Care Provider [phone] Encounter Details Date Type Department Care Team [...] on filedocumented in this encounter Care Teams Propeller Driven Airplane Mechanic Relationship Specialty Start Date End Date Vandana Carney FNP PCP - General Family Medicine 12/09/22 04/04/23 Loida Daugherty FNP [address] [place] [address] PCP - General Family Medicine 04/05/23 08/02/23 Juanita Eldridge DO [address] [facility] [place] [address] PCP - General Family Medicine 08/03/23 documented as of this encounter
--- OUTSIDE RECORDS SUMMARY | 2024-11-28 10:17 | XMS_ITS | Encounter Summary ---
Author Organization [employer] Address [address] [facility] [address] [place] [address] Care Team Providers Care Health And Wellness Director Name Role Phone Juanita Eldridge DO Primary Care Provider [phone] Encounter Details Date Type Department Care Team (Late st Contact Info) Description 06/07/2024 Orders Only [facility] [address] [place] [address] Juanita Eldridge DO [address] [place], [place] [id number] Colon cancer screening Social History Tobacco Use [...] colon documented in this encounter Care Teams Health And Wellness Director Relationship Specialty Start Date End Date Juanita Eldridge DO [address] [place] [address] PCP - General Family Medicine 08/03/23 documented as of this encounter
--- OUTSIDE RECORDS SUMMARY | 2024-11-28 10:17 | XMS_ITS | Encounter Summary ---
Author Organization [employer] Address [address] [facility] [address] [place] [address] Care Team Providers Care Epic Kaleidoscope Analyst Name Role Phone Vandana CarneyP Primary Care Provider Un available Loida Daugherty Primary Care Provider [phone] Juanita Eldridge DO Primary Care Provider [phone] Encounter Details Date Type Department Care Team [...] on filedocumented in this encounter Care Teams Epic Kaleidoscope Analyst Relationship Specialty Start Date End Date Vandana Carney FNP PCP - General Family Medicine 12/09/22 04/04/23 Loida Daugherty FNP [address] [place] [address] PCP - General Family Medicine 04/05/23 08/02/23 Juanita Eldridge DO [address] [place] [address] PCP - General Family Medicine 08/03/23 documented as of this encounter
--- OUTSIDE RECORDS SUMMARY | 2024-11-28 10:17 | XMS_ITS | Encounter Summary ---
Author Organization [employer] Address [address] [facility] [address] [place] [address] Care Team Providers Care Ui Ux Engineer Name Role Phone Vandana Carney Primary Care Provider Un available Loida Daugherty Primary Care Provider [phone] Juanita Eldridge DO Primary Care Provider [phone] Encounter Details Date Type Department Care Team (Late st Contact Info) Description 11/29/2022 Orders Only [facility] [address] [place] [address] Provider, Historical, Social History Tobacco Use Types [...] on filedocumented in this encounter Care Teams Ui Ux Engineer Relationship Specialty Start Date End Date Vandana Carney FNP PCP - General Family Medicine 12/09/22 04/04/23 Loida Daugherty FNP [address] [facility] [place] [address] PCP - General Family Medicine 04/05/23 08/02/23 Juanita Eldridge DO [address] [facility] [place] [address] PCP - General Family Medicine 08/03/23 documented as of this encounter
== END 2024-11-28 10:38 | disposition home or self-care (01) ==
LOC: HO.RHES 09:24
PROVIDERS: PCP Nurse Practitioner Adult Health; Visit Provider Internal Medicine Rheumatology
DX: M17.0 Bilateral primary osteoarthritis of knee (principal)
CPT/HCPCS: 20610; 99213

== ENCOUNTER → 2024-11-28 09:23 | Outpatient (BNVA) | payer OTHER, SELFPAY | PROVIDERS: PCP Nurse Practitioner Adult Health; Visit Provider Internal Medicine Rheumatology | DX: M17.0 Bilateral primary osteoarthritis of knee (principal) | CPT/HCPCS: 20610; J7323 ==